=== PATIENT | male | born 1990 | race African-American/Black ===

== ENCOUNTER → 2016-10-25 | Outpatient (CLI) | payer OTHER ==
--- NOTE | ~2016-10-25 | CR229 ---
[facility], [place]. [facility] A Service of [facility] & [facility] RADIOLOGY TEXT RESULTS PATIENT: KAREEN CEJA LOCATION: [facility] : [birth year] UNIT #: [id number] AGE: [address]: Rebeka Bosch SEX: M ORDER DR: [id number] [address] [address] [id number] O MR#: [id number] Acc #: [id number] NAME: KAREEN CEJA : 1990 SEX: M STUDY DATE/TIME: 10/25/2016 11:39 UNIT: [facility] ROOM: STUDY DESCRIPTION: CR Shoulder Min 2 View Lt Attending Physician: Rebeka Bosch A.P.R.N. Referring Physician: Rebeka Bosch A.P.R.N. Ordering Physician: Rebeka Bosch A.P.R.N. Primary Care Physician: Rebeka Bosch A.P.R.N. MEDICAL IMAGING REPORT This report is preliminary unless electronic signature is present. EXAM Left shoulder 3 views 10/25/2016 HISTORY Left shoulder pain anteriorly for 1 month, injured doing chin-ups 1 month ago. FINDINGS AP view with internal and external rotation of the shoulder girdle shows satisfactory relationship of the humeral head and glenoid fossa. The joint space is normal. There is no identifiable fracture or dislocation or bony destructive process about the shoulder girdle anatomy. The acromioclavicular joint is normal. There is no radiopaque foreign body in the region. IMPRESSION Normal shoulder. Dictated by... Jose Roberto Viveros M.D. THIS IS AN ELECTRONICALLY VERIFIED REPORT Jose Roberto Viveros M.D. at 10/26/2016 7:27 AM DARRYN/john TD: 10/25/2016 18:38 JOB #: [id number] MEDICAL IMAGING REPORT Page 1 of 1
== END | disposition home or self-care (01) ==
LOC: SRAD 11:08
DX: M25.512 Pain in left shoulder (principal)
CPT/HCPCS: 73030